=== PATIENT | female | born 1960 | race Caucasian/White ===

== ENCOUNTER → 2016-06-18 | Outpatient (CLI) | payer OTHER ==
[~2016-06-18] MED LIST: ASPI-515 PO; BISO1TAB12 PO; COLON HEALTH PO; FIBER PO; HYDR-3138 PO; LEVO100T5 PO; LUTE1CAP PO; MULT-516 PO; NORE0.3513 PO; OMEP-110 PO
== END | disposition home or self-care (01) ==
LOC: LAB 11:50
PROVIDERS: ATTEND Family Medicine
DX: E03.9 Hypothyroidism, unspecified (principal)
CPT/HCPCS: 36415; 84443

== ENCOUNTER → 2016-07-18 | Outpatient (CLI) | payer OTHER | END | disposition home or self-care (01) | LOC: CFH 06:52 | PROVIDERS: ATTEND Internal Medicine Cardiovascular Disease | DX: I49.3 Ventricular premature depolarization (principal); I10 Essential (primary) hypertension; I47.2 Ventricular tachycardia | CPT/HCPCS: 78452; 93017; 93306; A9502 ==

== ENCOUNTER 2016-10-17 09:50 | Inpatient (IN) | payer OTHER ==
[~2016-10-17] VITALS: Ht 162.6 cm; Wt 95.2 kg
[~2016-10-17 09:50] MED LIST changes: -HYDR-3138 PO; +HYDR-3237 PO
[2016-10-17] MEDS ORDERED: MORPHINE SULFATE 4 MG/ML, 1ML ONE ×2 (10:22→15:20)
[2016-10-17] MEDS ORDERED: ONDANSETRON 2MG/ML, 2ML ONE (10:22)
[2016-10-17] MEDS ORDERED: SODIUM CHLORIDE FLUSH 10ML SYR IVF ONE (10:30)
[2016-10-17] MEDS ORDERED: SODIUM CHLORIDE 0.9% 1,000ML IVBOLUS ONE (10:30)
[2016-10-17] MEDS ORDERED: ONDANSETRON 2MG/ML, 2ML IVPush ONE (10:30)
[2016-10-17] MEDS ORDERED: MORPHINE SULFATE 4 MG/ML, 1ML IVPush PRN (10:30)
[2016-10-17 10:53] LABS: HEMATOCRIT 41.1 % (34.6-47.8); HEMOGLOBIN 13.9 g/dL (11.7-16.4); WHITE BLOOD COUNT 13.7 x10^3/uL (3.4-10)
[2016-10-17 11:06] LABS: ASPARTATE AMINO TRANSFERASE 15 U/L (15-37); BLOOD UREA NITROGEN 12 mg/dL (7-18)
[2016-10-17 11:32] LABS: PATH.CAST-FLAG NOT PRESENT; SPERM-FLAG NOT PRESENT; SRC-FLAG NOT PRESENT; XTAL-FLAG NOT PRESENT; YLC-FLAG NOT PRESENT
[2016-10-17] MEDS ORDERED: OMNIPAQUE 350 MG/ML, 100ML BOTTLE ONE (12:30)
[2016-10-17] MEDS ORDERED: DIAZEPAM 5 MG/ML, 2ML IV ONE (13:30)
[2016-10-17] MEDS ORDERED: ONDANSETRON 2MG/ML, 2ML IVPush PRN (14:00)
[2016-10-17] MEDS ORDERED: OMEPRAZOLE 20 MG CAPSULE.DR PO SCH (14:00)
[2016-10-17] MEDS ORDERED: hydrALAzine 20 MG/ML, 1ML IVPush PRN (14:00)
[2016-10-17] MEDS ORDERED: DIAZEPAM 5 MG/ML, 2ML ONE (15:20)
[2016-10-17] MEDS: morphine SULFATE 10 MG/ML, 1ML IVPush PRN (15:21)
[2016-10-17] MEDS: LACTATED RINGERS 1,000 ML IV SCH (16:28)
[2016-10-17 17:08] VITALS: BP 123/84
[2016-10-17 19:10] VITALS: BP 118/80
[2016-10-17] MEDS: LACTULOSE 10 GM/15 ML UDC PO SCH (21:00)
[2016-10-18 01:25] VITALS: BP 112/75
[2016-10-18] MEDS: LACTATED RINGERS 1,000 ML IV SCH ×3 (01:31→23:56)
[2016-10-18] MEDS: LEVOTHYROXINE 100 MCG TABLET PO SCH (07:53)
[2016-10-18 08:33] VITALS: BP 135/83
[2016-10-18] MEDS ORDERED: [UNRECOGNIZED DRUG - OTHER] HOMEMEDPO SCH (09:00)
[2016-10-18] MEDS ORDERED: LUTEIN PO SCH (09:00)
[2016-10-18] MEDS ORDERED: HCTZ HOMEMEDPO SCH (09:00)
[2016-10-18] MEDS ORDERED: NORETHINDRONE 0.35 MG HOMEMEDPO SCH (09:00)
[2016-10-18] MEDS ORDERED: BISOPROLOL FUMARATE HOMEMEDPO SCH (09:00)
[2016-10-18] MEDS ORDERED: ZEAXANTHIN PO SCH (09:00)
[2016-10-18] MEDS: LACTULOSE 10 GM/15 ML UDC PO SCH ×2 (09:03→20:33)
[2016-10-18] MEDS: MULTIVITAMIN 1 TABLET PO SCH (09:03)
[2016-10-18 13:37] VITALS: BP 153/94
[2016-10-18] MEDS ORDERED: ACETAMINOPHEN 325 MG TABLET PO PRN ×3 (14:00→18:30)
[2016-10-18] MEDS ORDERED: ACETAMINOPHEN 325 MG TABLET ONE (14:04)
[2016-10-18 15:09] VITALS: BP 119/81
[2016-10-18] MEDS ORDERED: hydrALAzine 20 MG/ML, 1ML IVPush PRN (15:30)
[2016-10-18] MEDS ORDERED: VANCOMYCIN PER PHARMACY MC PRN (18:30)
[2016-10-18] MEDS ORDERED: PHARMACOKINETIC MONITORING MC PRN (19:00)
[2016-10-18] MEDS ORDERED: VANCOMYCIN 1,900 MG in SODIUM CHLORIDE 0.9% 250 ML IV SCH ×2 (19:00→22:00)
[2016-10-18] MEDS ORDERED: PHARMACOKINETIC CONSULTATION MC ONE (19:00)
[2016-10-18 19:55] VITALS: BP 124/77
[2016-10-18] MEDS: PIPERACILLIN/TAZO/PMX 3.375GM 50 ML IV SCH (20:17)
[2016-10-18] MEDS: ENOXAPARIN 40 MG/0.4 ML SQ SCH (20:18)
[2016-10-18] MEDS: OMEPRAZOLE 20 MG CAPSULE.DR PO PRN (21:53)
[2016-10-19 02:24] VITALS: BP 134/89
[2016-10-19] MEDS: PIPERACILLIN/TAZO/PMX 3.375GM 50 ML IV SCH ×4 (02:27→20:00)
[2016-10-19] MEDS: morphine SULFATE 10 MG/ML, 1ML IVPush PRN ×3 (02:41→09:28)
[2016-10-19 04:47] LABS: HEMATOCRIT 35.6 % (34.6-47.8); HEMOGLOBIN 11.8 g/dL (11.7-16.4); WHITE BLOOD COUNT 20.4 x10^3/uL (3.4-10)
[2016-10-19 04:53] LABS: BLOOD UREA NITROGEN 8 mg/dL (7-18)
[2016-10-19 04:57] LABS: ASPARTATE AMINO TRANSFERASE 18 U/L (15-37)
[2016-10-19] MEDS: LEVOTHYROXINE 100 MCG TABLET PO SCH (05:05)
[2016-10-19 06:25] LABS: DIFF TOTAL CELLS COUNTED 100 CELL DIFF
[2016-10-19 06:26] LABS: VERIFY COUNTS? YES
[2016-10-19 06:27] LABS: POLYCHROMASIA 1+
[2016-10-19 07:26] VITALS: BP 137/85
[2016-10-19] MEDS: MULTIVITAMIN 1 TABLET PO SCH (07:29)
[2016-10-19] MEDS: LACTULOSE 10 GM/15 ML UDC PO SCH ×2 (07:29→20:42)
[2016-10-19] MEDS: HYDROcodone/APAP 10/325 MG TABLET PO PRN ×5 (07:29→23:23)
[2016-10-19] MEDS: [UNRECOGNIZED DRUG - OTHER] HOMEMEDPO SCH (07:29)
[2016-10-19] MEDS: POTASSIUM CHLORIDE 20 MEQ TAB.ER.PRT PO SCH ×2 (11:26→19:20)
[2016-10-19 13:42] VITALS: BP 125/85
[2016-10-19] MEDS: VANCOMYCIN 1,500 MG in SODIUM CHLORIDE 0.9% 250 ML IV SCH (15:30)
[2016-10-19] MEDS: LACTATED RINGERS 1,000 ML IV SCH (15:30)
[2016-10-19 18:48] VITALS: BP 120/86
[2016-10-19] MEDS: ENOXAPARIN 40 MG/0.4 ML SQ SCH (19:20)
[2016-10-19] MEDS ORDERED: hydrALAzine 20 MG/ML, 1ML IVPush PRN (19:30)
[2016-10-19] MEDS ORDERED: PHARMACOKINETIC MONITORING MC PRN (19:30)
[2016-10-19] MEDS ORDERED: VANCOMYCIN PER PHARMACY MC PRN (19:30)
[2016-10-19] MEDS ORDERED: HYDROmorphone 1 MG/ML, 1ML IM PRN (21:00)
[2016-10-20] MEDS: LACTATED RINGERS 1,000 ML IV SCH ×3 (01:30→19:20)
[2016-10-20 01:38] VITALS: BP 121/82
[2016-10-20] MEDS: PIPERACILLIN/TAZO/PMX 3.375GM 50 ML IV SCH ×4 (02:00→20:21)
[2016-10-20] MEDS: HYDROcodone/APAP 10/325 MG TABLET PO PRN ×5 (03:53→20:20)
[2016-10-20 04:59] LABS: HEMATOCRIT 34.6 % (34.6-47.8); HEMOGLOBIN 11.6 g/dL (11.7-16.4); WHITE BLOOD COUNT 21.8 x10^3/uL (3.4-10)
[2016-10-20 05:13] LABS: BLOOD UREA NITROGEN 9 mg/dL (7-18)
[2016-10-20 05:16] LABS: ASPARTATE AMINO TRANSFERASE 13 U/L (15-37)
[2016-10-20] MEDS: LEVOTHYROXINE 100 MCG TABLET PO SCH (05:35)
[2016-10-20 05:42] LABS: DIFF TOTAL CELLS COUNTED 100 CELL DIFF
[2016-10-20 05:44] LABS: VERIFY COUNTS? YES
[2016-10-20 07:24] VITALS: BP 131/79
[2016-10-20] MEDS: [UNRECOGNIZED DRUG - OTHER] HOMEMEDPO SCH (07:41)
[2016-10-20] MEDS: LACTULOSE 10 GM/15 ML UDC PO SCH ×2 (07:41→20:20)
[2016-10-20] MEDS: MULTIVITAMIN 1 TABLET PO SCH (07:41)
[2016-10-20] MEDS: VANCOMYCIN 1,500 MG in SODIUM CHLORIDE 0.9% 250 ML IV SCH (11:05)
[2016-10-20 13:16] VITALS: BP 130/91
[2016-10-20 19:03] VITALS: BP 122/84
[2016-10-20] MEDS: ENOXAPARIN 40 MG/0.4 ML SQ SCH (19:20)
[2016-10-20] MEDS: ACETAMINOPHEN 325 MG TABLET PO PRN (20:20)
[2016-10-21] MEDS: METRONIDAZOLE PMX 500MG/100ML 100 ML IVPB SCH ×4 (00:19→16:56)
[2016-10-21] MEDS: HYDROcodone/APAP 10/325 MG TABLET PO PRN ×6 (00:19→20:59)
[2016-10-21] MEDS: PIPERACILLIN/TAZO/PMX 3.375GM 50 ML IV SCH ×4 (02:19→20:10)
[2016-10-21 03:24] VITALS: BP 120/81
[2016-10-21] MEDS: VANCOMYCIN 1,500 MG in SODIUM CHLORIDE 0.9% 250 ML IV SCH ×2 (04:19→22:57)
[2016-10-21 04:37] LABS: HEMATOCRIT 33.2 % (34.6-47.8); WHITE BLOOD COUNT 19.9 x10^3/uL (3.4-10)
[2016-10-21] MEDS: LACTATED RINGERS 1,000 ML IV SCH ×2 (06:14→16:56)
[2016-10-21] MEDS: LEVOTHYROXINE 112 MCG TABLET PO SCH (06:14)
[2016-10-21 07:16] VITALS: BP 121/71
[2016-10-21] MEDS: MULTIVITAMIN 1 TABLET PO SCH (08:20)
[2016-10-21] MEDS: LACTULOSE 10 GM/15 ML UDC PO SCH ×2 (08:20→20:10)
[2016-10-21] MEDS: [UNRECOGNIZED DRUG - OTHER] HOMEMEDPO SCH (08:21)
[2016-10-21] MEDS ORDERED: MAGNESIUM CITRATE 300ML ORAL SOL PO ONE ×2 (09:30→18:30)
[2016-10-21] MEDS: POLYETHYLENE GLYCOL 17 GM PACKET PO SCH (10:00)
[2016-10-21] MEDS ORDERED: MAGNESIUM HYDROXIDE 8%, 30ML UDC PO PRN (11:30)
[2016-10-21 14:07] VITALS: BP 130/87
[2016-10-21] MEDS: ACETAMINOPHEN 325 MG TABLET PO PRN (16:09)
[2016-10-21] MEDS: ENOXAPARIN 40 MG/0.4 ML SQ SCH (16:56)
[2016-10-21] MEDS: ONDANSETRON 2MG/ML, 2ML IVPush PRN (16:58)
[2016-10-21] MEDS ORDERED: MAGNESIUM CITRATE 300ML ORAL SOL ONE (18:21)
[2016-10-21 19:35] VITALS: BP 124/82
[2016-10-22] MEDS: PIPERACILLIN/TAZO/PMX 3.375GM 50 ML IV SCH ×4 (02:13→21:53)
[2016-10-22] MEDS: LACTATED RINGERS 1,000 ML IV SCH (05:00)
[2016-10-22] MEDS: METRONIDAZOLE PMX 500MG/100ML 100 ML IVPB SCH ×3 (06:00→18:04)
[2016-10-22] MEDS: LEVOTHYROXINE 112 MCG TABLET PO SCH (06:00)
[2016-10-22 06:53] VITALS: BP 126/81
[2016-10-22 08:16] LABS: HEMATOCRIT 31.7 % (34.6-47.8); HEMOGLOBIN 10.5 g/dL (11.7-16.4); WHITE BLOOD COUNT 18.6 x10^3/uL (3.4-10)
[2016-10-22] MEDS: [UNRECOGNIZED DRUG - OTHER] HOMEMEDPO SCH (08:17)
[2016-10-22] MEDS: MULTIVITAMIN 1 TABLET PO SCH (08:17)
[2016-10-22] MEDS: LACTULOSE 10 GM/15 ML UDC PO SCH ×3 (08:17→21:15)
[2016-10-22] MEDS: POLYETHYLENE GLYCOL 17 GM PACKET PO SCH (09:00)
[2016-10-22] MEDS: HYDROcodone/APAP 10/325 MG TABLET PO PRN ×3 (09:44→18:05)
[2016-10-22] MEDS: VANCOMYCIN 2,000 MG in SODIUM CHLORIDE 0.9% 500 ML IV SCH (10:58)
[2016-10-22] MEDS: IBUPROFEN 200 MG TABLET PO PRN (13:50)
[2016-10-22] MEDS: ONDANSETRON 2MG/ML, 2ML IVPush PRN ×2 (13:51→21:15)
[2016-10-22 14:15] VITALS: BP 113/78
[2016-10-22] MEDS: ENOXAPARIN 40 MG/0.4 ML SQ SCH ×2 (18:05→21:15)
[2016-10-22 19:21] VITALS: BP 132/89
[2016-10-23] MEDS: METRONIDAZOLE PMX 500MG/100ML 100 ML IVPB SCH ×5 (00:22→23:30)
[2016-10-23 02:05] VITALS: BP 152/97
[2016-10-23] MEDS: PIPERACILLIN/TAZO/PMX 3.375GM 50 ML IV SCH ×4 (03:52→21:13)
[2016-10-23] MEDS: ONDANSETRON 2MG/ML, 2ML IVPush PRN ×2 (04:07→12:50)
[2016-10-23] MEDS: VANCOMYCIN 2,000 MG in SODIUM CHLORIDE 0.9% 500 ML IV SCH (04:49)
[2016-10-23] MEDS: FAMOTIDINE 20 MG TABLET PO PRN (04:49)
[2016-10-23 05:13] LABS: BLOOD UREA NITROGEN 9 mg/dL (7-18)
[2016-10-23] MEDS: LEVOTHYROXINE 112 MCG TABLET PO SCH (06:05)
[2016-10-23 07:58] VITALS: BP 150/99
[2016-10-23] MEDS: PROCHLORPERAZINE 5 MG/ML, 2ML IVPush PRN ×2 (08:50→21:03)
[2016-10-23] MEDS: MULTIVITAMIN 1 TABLET PO SCH (08:50)
[2016-10-23] MEDS: LACTULOSE 10 GM/15 ML UDC PO SCH ×2 (08:50→21:00)
[2016-10-23] MEDS: [UNRECOGNIZED DRUG - OTHER] HOMEMEDPO SCH (08:51)
[2016-10-23] MEDS: POLYETHYLENE GLYCOL 17 GM PACKET PO SCH (09:58)
[2016-10-23] MEDS ORDERED: PROCHLORPERAZINE 5 MG/ML, 2ML IV PRN (10:00)
[2016-10-23] MEDS ORDERED: POTASSIUM CHLORIDE 20 MEQ TAB.ER.PRT PO ONE (10:30)
[2016-10-23] MEDS: HYDROcodone/APAP 10/325 MG TABLET PO PRN ×3 (10:59→21:02)
[2016-10-23] MEDS ORDERED: CATHFLO-ALTEPLASE 2 MG/2 ML CATHFLUSH ONE ×2 (11:30→12:30)
[2016-10-23 11:32] LABS: HEMATOCRIT 36.2 % (34.6-47.8); HEMOGLOBIN 11.9 g/dL (11.7-16.4); WHITE BLOOD COUNT 25.6 x10^3/uL (3.4-10)
[2016-10-23 11:41] LABS: BLOOD UREA NITROGEN 10 mg/dL (7-18)
[2016-10-23 11:45] LABS: DIFF TOTAL CELLS COUNTED 100 CELL DIFF
[2016-10-23 11:47] LABS: VERIFY COUNTS? YES
[2016-10-23 14:00] VITALS: BP 150/99
[2016-10-23] MEDS ORDERED: OMNIPAQUE 350 MG/ML, 100ML BOTTLE ONE (17:04)
[2016-10-23 20:52] VITALS: BP 157/89
[2016-10-23] MEDS: ENOXAPARIN 40 MG/0.4 ML SQ SCH (21:02)
[2016-10-24] MEDS: HYDROcodone/APAP 10/325 MG TABLET PO PRN ×5 (02:02→20:56)
[2016-10-24 02:24] VITALS: BP 153/79
[2016-10-24] MEDS: PIPERACILLIN/TAZO/PMX 3.375GM 50 ML IV SCH ×2 (03:10→10:45)
[2016-10-24 03:39] LABS: HEMATOCRIT 33.2 % (34.6-47.8); HEMOGLOBIN 10.9 g/dL (11.7-16.4)
[2016-10-24 03:51] LABS: ASPARTATE AMINO TRANSFERASE 23 U/L (15-37); BLOOD UREA NITROGEN 10 mg/dL (7-18)
[2016-10-24 03:52] LABS: DIFF TOTAL CELLS COUNTED 100 CELL DIFF
[2016-10-24 03:54] LABS: VERIFY COUNTS? YES
[2016-10-24] MEDS: LEVOTHYROXINE 112 MCG TABLET PO SCH ×2 (06:00→12:09)
[2016-10-24] MEDS: METRONIDAZOLE PMX 500MG/100ML 100 ML IVPB SCH ×2 (06:17→12:07)
[2016-10-24 06:43] VITALS: BP 153/92
[2016-10-24] MEDS: PROCHLORPERAZINE 5 MG/ML, 2ML IVPush PRN ×2 (07:25→21:02)
[2016-10-24] MEDS: POLYETHYLENE GLYCOL 17 GM PACKET PO SCH (07:38)
[2016-10-24] MEDS: [UNRECOGNIZED DRUG - OTHER] HOMEMEDPO SCH ×2 (07:38→10:45)
[2016-10-24] MEDS: LACTULOSE 10 GM/15 ML UDC PO SCH ×2 (07:38→20:56)
[2016-10-24] MEDS: MULTIVITAMIN 1 TABLET PO SCH (07:39)
[2016-10-24] MEDS ORDERED: LIDOCAINE 1%, 20ML ONE (08:30)
[2016-10-24] MEDS ORDERED: FENTANYL PF 100 MCG/2ML ONE (08:41)
[2016-10-24] MEDS ORDERED: MIDAZOLAM 1 MG/ML, 5ML ONE (08:41)
[2016-10-24] MEDS ORDERED: FLUMAZENIL 0.1 MG/1 ML, 5ML ONE (08:42)
[2016-10-24] MEDS ORDERED: NALOXONE 1 MG/ML, 2ML ONE (08:42)
[2016-10-24] MEDS: morphine SULFATE 10 MG/ML, 1ML IVPush PRN ×2 (10:45→20:56)
[2016-10-24] MEDS ORDERED: FLU VACC QS2017-18 (36MOS+) UP/PF 0.5 ML IM-VACC ONE (13:00)
[2016-10-24 14:00] VITALS: BP 134/83
[2016-10-24] MEDS: PIPERACILLIN/TAZO/PMX 4.5GM 100 ML IV SCH ×2 (16:33→22:54)
[2016-10-24 19:10] VITALS: BP 150/79
[2016-10-24] MEDS: metroNIDAZOLE 500 MG TABLET PO SCH (20:56)
[2016-10-24] MEDS: ENOXAPARIN 40 MG/0.4 ML SQ SCH (20:56)
[2016-10-24] MEDS: POTASSIUM CHLORIDE 20 MEQ TAB.ER.PRT PO SCH ×2 (20:57→22:54)
[2016-10-25] MEDS: HYDROcodone/APAP 10/325 MG TABLET PO PRN ×5 (01:27→18:29)
[2016-10-25 02:30] VITALS: BP 150/89
[2016-10-25] MEDS: PIPERACILLIN/TAZO/PMX 4.5GM 100 ML IV SCH ×4 (03:55→20:20)
[2016-10-25] MEDS: metroNIDAZOLE 500 MG TABLET PO SCH ×3 (03:55→20:19)
[2016-10-25 04:20] LABS: BLOOD UREA NITROGEN 9 mg/dL (7-18)
[2016-10-25] MEDS: LEVOTHYROXINE 112 MCG TABLET PO SCH (06:00)
[2016-10-25 07:11] VITALS: BP 162/99
[2016-10-25] MEDS: PROCHLORPERAZINE 5 MG/ML, 2ML IVPush PRN (08:11)
[2016-10-25] MEDS: MULTIVITAMIN 1 TABLET PO SCH (08:12)
[2016-10-25] MEDS: LACTULOSE 10 GM/15 ML UDC PO SCH ×2 (08:15→20:19)
[2016-10-25] MEDS: POLYETHYLENE GLYCOL 17 GM PACKET PO SCH (08:16)
[2016-10-25 12:48] VITALS: BP 167/100
[2016-10-25] MEDS: FAMOTIDINE 20 MG TABLET PO PRN (18:25)
[2016-10-25] MEDS: METOPROLOL TARTRATE 25 MG TABLET PO SCH (18:25)
[2016-10-25] MEDS: POTASSIUM CHLORIDE 20 MEQ TAB.ER.PRT PO SCH ×3 (18:25→23:58)
[2016-10-25 19:15] VITALS: BP 156/83
[2016-10-25] MEDS: LISINOPRIL 20 MG TABLET PO SCH (20:20)
[2016-10-25] MEDS: ENOXAPARIN 40 MG/0.4 ML SQ SCH (20:20)
[2016-10-26] MEDS: PROCHLORPERAZINE 5 MG/ML, 2ML IVPush PRN
[2016-10-26] MEDS: HYDROcodone/APAP 10/325 MG TABLET PO PRN ×5 (00:22→17:32)
[2016-10-26 02:58] VITALS: BP 152/84
[2016-10-26] MEDS: LEVOTHYROXINE 112 MCG TABLET PO SCH (04:54)
[2016-10-26] MEDS: metroNIDAZOLE 500 MG TABLET PO SCH ×3 (04:55→19:55)
[2016-10-26] MEDS: METOPROLOL TARTRATE 25 MG TABLET PO SCH ×2 (04:55→17:32)
[2016-10-26] MEDS: PIPERACILLIN/TAZO/PMX 4.5GM 100 ML IV SCH ×4 (04:55→21:39)
[2016-10-26 05:34] LABS: HEMATOCRIT 33.1 % (34.6-47.8)
[2016-10-26 05:52] LABS: BLOOD UREA NITROGEN 7 mg/dL (7-18)
[2016-10-26 06:19] LABS: DIFF TOTAL CELLS COUNTED 100 CELL DIFF
[2016-10-26 06:22] LABS: VERIFY COUNTS? YES
[2016-10-26 06:23] LABS: POLYCHROMASIA 1+
[2016-10-26 07:50] VITALS: BP 159/101
[2016-10-26] MEDS: POLYETHYLENE GLYCOL 17 GM PACKET PO SCH ×2 (08:48→10:05)
[2016-10-26] MEDS: LACTULOSE 10 GM/15 ML UDC PO SCH ×2 (08:48→21:00)
[2016-10-26] MEDS: MULTIVITAMIN 1 TABLET PO SCH (08:49)
[2016-10-26] MEDS: LISINOPRIL 20 MG TABLET PO SCH ×3 (08:51→19:55)
[2016-10-26 13:55] VITALS: BP 159/100
[2016-10-26] MEDS ORDERED: hydrALAzine 20 MG/ML, 1ML IVPush PRN (14:00)
[2016-10-26] MEDS: FAMOTIDINE 20 MG TABLET PO PRN (14:02)
[2016-10-26 18:47] VITALS: BP 158/94
[2016-10-26] MEDS: ENOXAPARIN 40 MG/0.4 ML SQ SCH (19:55)
[2016-10-26] MEDS: IBUPROFEN 200 MG TABLET PO PRN (21:38)
[2016-10-27 03:59] VITALS: BP 163/97
[2016-10-27] MEDS: PIPERACILLIN/TAZO/PMX 4.5GM 100 ML IV SCH ×4 (04:21→22:16)
[2016-10-27] MEDS: HYDROcodone/APAP 10/325 MG TABLET PO PRN (04:21)
[2016-10-27] MEDS: metroNIDAZOLE 500 MG TABLET PO SCH (04:21)
[2016-10-27 04:56] LABS: HEMATOCRIT 33.5 % (34.6-47.8); HEMOGLOBIN 11.2 g/dL (11.7-16.4); WHITE BLOOD COUNT 19.2 x10^3/uL (3.4-10)
[2016-10-27 05:00] LABS: BLOOD UREA NITROGEN 12 mg/dL (7-18)
[2016-10-27 05:11] LABS: ASPARTATE AMINO TRANSFERASE 19 U/L (15-37)
[2016-10-27] MEDS: METOPROLOL TARTRATE 25 MG TABLET PO SCH ×2 (05:54→17:40)
[2016-10-27] MEDS: LEVOTHYROXINE 112 MCG TABLET PO SCH (05:55)
[2016-10-27] MEDS: IBUPROFEN 200 MG TABLET PO PRN ×2 (06:21→15:35)
[2016-10-27 08:18] VITALS: BP 165/99
[2016-10-27] MEDS: LACTULOSE 10 GM/15 ML UDC PO SCH ×2 (08:37→21:00)
[2016-10-27] MEDS: POLYETHYLENE GLYCOL 17 GM PACKET PO SCH (08:38)
[2016-10-27] MEDS: LISINOPRIL 20 MG TABLET PO SCH ×2 (08:47→21:40)
[2016-10-27] MEDS: MULTIVITAMIN 1 TABLET PO SCH (08:48)
[2016-10-27] MEDS: FAMOTIDINE 20 MG TABLET PO PRN (13:39)
[2016-10-27] MEDS: METHOCARBAMOL 500 MG TABLET PO PRN (13:42)
[2016-10-27 14:10] VITALS: BP 158/90
[2016-10-27 17:43] VITALS: BP 152/86
[2016-10-27 19:30] VITALS: BP 173/102
[2016-10-27] MEDS: ENOXAPARIN 40 MG/0.4 ML SQ SCH (21:40)
[2016-10-28 02:56] VITALS: BP 164/95
[2016-10-28] MEDS: HYDROcodone/APAP 10/325 MG TABLET PO PRN (02:57)
[2016-10-28 03:13] LABS: HEMATOCRIT 37.1 % (34.6-47.8); HEMOGLOBIN 12.1 g/dL (11.7-16.4)
[2016-10-28 03:24] LABS: ASPARTATE AMINO TRANSFERASE 14 U/L (15-37); BLOOD UREA NITROGEN 10 mg/dL (7-18)
[2016-10-28] MEDS: PIPERACILLIN/TAZO/PMX 4.5GM 100 ML IV SCH ×4 (04:14→21:42)
[2016-10-28 04:46] LABS: DIFF TOTAL CELLS COUNTED 100 CELL DIFF
[2016-10-28 04:48] LABS: ANISOCYTOSIS 1+; VERIFY COUNTS? YES
[2016-10-28 04:49] LABS: LARGE PLATELETS 1+
[2016-10-28] MEDS: LEVOTHYROXINE 112 MCG TABLET PO SCH (06:06)
[2016-10-28] MEDS: METOPROLOL TARTRATE 25 MG TABLET PO SCH ×2 (06:06→17:28)
[2016-10-28 08:26] VITALS: BP 138/89
[2016-10-28] MEDS: POLYETHYLENE GLYCOL 17 GM PACKET PO SCH (09:00)
[2016-10-28] MEDS: LACTULOSE 10 GM/15 ML UDC PO SCH ×3 (09:00→20:37)
[2016-10-28] MEDS: MULTIVITAMIN 1 TABLET PO SCH (09:35)
[2016-10-28] MEDS: LISINOPRIL 20 MG TABLET PO SCH ×2 (09:35→21:47)
[2016-10-28] MEDS: METHOCARBAMOL 500 MG TABLET PO PRN ×2 (10:43→19:19)
[2016-10-28] MEDS: IBUPROFEN 200 MG TABLET PO PRN ×2 (12:15→20:43)
[2016-10-28] MEDS: FAMOTIDINE 20 MG TABLET PO PRN (14:15)
[2016-10-28 14:50] VITALS: BP 151/90
[2016-10-28] MEDS ORDERED: CETIRIZINE 10 MG TABLET PO PRN (17:00)
[2016-10-28 18:57] VITALS: BP_SYST 120; BP_DIAS 7; BP_DIAS 77
[2016-10-28] MEDS: ENOXAPARIN 40 MG/0.4 ML SQ SCH (20:37)
[2016-10-28 21:37] VITALS: BP 126/80
[2016-10-28] MEDS: OMEPRAZOLE 20 MG CAPSULE.DR PO PRN (21:42)
[2016-10-29 03:50] VITALS: BP 158/94
[2016-10-29] MEDS: PIPERACILLIN/TAZO/PMX 4.5GM 100 ML IV SCH ×4 (03:54→20:11)
[2016-10-29] MEDS: HYDROcodone/APAP 10/325 MG TABLET PO PRN ×3 (05:32→20:09)
[2016-10-29] MEDS: LEVOTHYROXINE 150 MCG TABLET PO SCH (05:33)
[2016-10-29 05:36] VITALS: BP 147/77
[2016-10-29] MEDS: METOPROLOL TARTRATE 25 MG TABLET PO SCH ×2 (05:37→18:10)
[2016-10-29 06:09] LABS: HEMATOCRIT 35.6 % (34.6-47.8)
[2016-10-29 07:29] VITALS: BP 148/83
[2016-10-29] MEDS: POLYETHYLENE GLYCOL 17 GM PACKET PO SCH (09:00)
[2016-10-29] MEDS: MULTIVITAMIN 1 TABLET PO SCH (09:07)
[2016-10-29] MEDS: LISINOPRIL 20 MG TABLET PO SCH ×2 (09:08→20:10)
[2016-10-29] MEDS: IBUPROFEN 200 MG TABLET PO PRN (10:02)
[2016-10-29 14:27] VITALS: BP 147/103
[2016-10-29 16:00] VITALS: BP 157/85
[2016-10-29 19:36] VITALS: BP 127/79
[2016-10-29] MEDS: ENOXAPARIN 40 MG/0.4 ML SQ SCH (20:10)
[2016-10-29] MEDS: LACTULOSE 10 GM/15 ML UDC PO SCH ×2 (20:10→20:12)
[2016-10-30] MEDS: HYDROcodone/APAP 10/325 MG TABLET PO PRN ×3 (02:21→20:47)
[2016-10-30 02:37] VITALS: BP 148/89
[2016-10-30] MEDS: PIPERACILLIN/TAZO/PMX 4.5GM 100 ML IV SCH ×4 (04:03→22:34)
[2016-10-30 04:20] LABS: HEMATOCRIT 35.8 % (34.6-47.8); HEMOGLOBIN 11.8 g/dL (11.7-16.4); WHITE BLOOD COUNT 12.2 x10^3/uL (3.4-10)
[2016-10-30] MEDS: METOPROLOL TARTRATE 25 MG TABLET PO SCH ×2 (06:04→18:03)
[2016-10-30] MEDS: OMEPRAZOLE 20 MG CAPSULE.DR PO PRN ×2 (06:04→19:50)
[2016-10-30] MEDS: LEVOTHYROXINE 150 MCG TABLET PO SCH (06:04)
[2016-10-30 07:26] VITALS: BP 122/78
[2016-10-30] MEDS: IBUPROFEN 200 MG TABLET PO PRN (07:47)
[2016-10-30] MEDS: LACTULOSE 10 GM/15 ML UDC PO SCH ×2 (09:00→19:50)
[2016-10-30] MEDS: POLYETHYLENE GLYCOL 17 GM PACKET PO SCH (09:00)
[2016-10-30] MEDS: LISINOPRIL 20 MG TABLET PO SCH ×2 (09:17→19:52)
[2016-10-30] MEDS: MULTIVITAMIN 1 TABLET PO SCH (09:17)
[2016-10-30 14:24] VITALS: BP 127/82
[2016-10-30 17:45] VITALS: BP 133/76
[2016-10-30 19:26] VITALS: BP 134/84
[2016-10-30] MEDS: ENOXAPARIN 40 MG/0.4 ML SQ SCH (19:52)
[2016-10-31 00:38] VITALS: BP 127/79
[2016-10-31] MEDS: HYDROcodone/APAP 10/325 MG TABLET PO PRN ×3 (04:35→18:01)
[2016-10-31] MEDS: PIPERACILLIN/TAZO/PMX 4.5GM 100 ML IV SCH ×2 (04:36→09:48)
[2016-10-31] MEDS: METOPROLOL TARTRATE 25 MG TABLET PO SCH ×2 (05:22→18:01)
[2016-10-31] MEDS: LEVOTHYROXINE 150 MCG TABLET PO SCH (05:22)
[2016-10-31 06:40] VITALS: BP 106/71
[2016-10-31] MEDS: LACTULOSE 10 GM/15 ML UDC PO SCH (09:00)
[2016-10-31] MEDS: LISINOPRIL 20 MG TABLET PO SCH (09:00)
[2016-10-31] MEDS: POLYETHYLENE GLYCOL 17 GM PACKET PO SCH (09:00)
[2016-10-31] MEDS: MULTIVITAMIN 1 TABLET PO SCH (09:48)
[2016-10-31] MEDS ORDERED: ERTAPENEM 1 GM in SODIUM CHLORIDE 0.9% 50 ML IV SCH (11:00)
[2016-10-31 12:08] VITALS: BP 134/83
[2016-10-31] MEDS ORDERED: ONDA4TAB13 SL (16:40)
[2016-10-31] MEDS ORDERED: LISI-170 PO (16:40)
[2016-10-31] MEDS ORDERED: ERTA1VIA IV (16:40)
[2016-10-31] MEDS ORDERED: METH500T7 PO (16:40)
[2016-10-31] MEDS ORDERED: POLY17PO5 PO (16:40)
[2016-10-31] MEDS ORDERED: METO25TA35 PO (16:40)
[2016-10-31] MEDS ORDERED: HYDR-3343 PO (16:40)
[2016-10-31] MEDS ORDERED: SIMV40TA PO (16:48)
== END 2016-10-31 18:00 | disposition home or self-care (01) | DRG 871 ==
LOC: ED 10:18 → EDIP 13:21 → SUATTDRO 13:23 → 3NW 15:40
PROVIDERS: ADMIT Internal Medicine; ATTEND Internal Medicine
PROC: B5181ZA Fluoroscopy of Superior Vena Cava using Low Osmolar Contrast, Guidance (ICD-10-PCS; principal; 2016-10-20)
PROC: 02HV33Z Insertion of Infusion Device into Superior Vena Cava, Percutaneous Approach (ICD-10-PCS; 2016-10-20)
PROC: B548ZZA Ultrasonography of Superior Vena Cava, Guidance (ICD-10-PCS; 2016-10-20)
DX: A41.51 Sepsis due to Escherichia coli [E. coli] (principal); E43 Unspecified severe protein-calorie malnutrition; C56.9 Malignant neoplasm of unspecified ovary; J98.11 Atelectasis; N39.0 Urinary tract infection, site not specified; E03.9 Hypothyroidism, unspecified; E87.6 Hypokalemia; I10 Essential (primary) hypertension; K52.9 Noninfective gastroenteritis and colitis, unspecified; K59.03 Drug induced constipation; N70.93 Salpingitis and oophoritis, unspecified; N83.209 Unspecified ovarian cyst, unspecified side; T40.605A Adverse effect of unspecified narcotics, initial encounter; Z80.3 Family history of malignant neoplasm of breast; Z80.41 Family history of malignant neoplasm of ovary; Z80.8 Family history of malignant neoplasm of other organs or systems; Z90.49 Acquired absence of other specified parts of digestive tract; Z68.36 Body mass index [BMI] 36.0-36.9, adult
CPT/HCPCS: 36415; 36569; 49405; 49406; 71010; 71020; 71260; 74020; 74176; 74177; 76937; 77001; 80048; 80053; 80202; 81001; 81211; 81213; 82378; 83605; 83690; 83735; 84100; 84443; 84703; 85025; 85651; 86140; 86304; 87040; 87046; 87070; 87075; 87077; 87086; 87102; 87186; 87205; 87324; 96361; 96374; 96375; 96376; 99156; 99157; C1894; J1335; J1650; J2250; J2405; J2543; J2997; J3010; J3370; J3490; Q9967; C1729; C1751; C1769; J0780; J2270; J2310; J7030; J7040; J7050; J7120

== ENCOUNTER → 2017-03-05 | Outpatient (CLI) | payer OTHER ==
[~2017-03-05] MED LIST changes: +ERTA1VIA IV; +HYDR-3343 PO; +LISI-170 PO; +METH500T7 PO; +METO25TA35 PO; +ONDA4TAB13 SL; +POLY17PO5 PO; +SIMV40TA PO
[2017-03-05 08:36] LABS: BASOPHILS # (AUTO) 0.05 x10^3/uL (0-0.1); BASOPHILS % (AUTO) 1 % (0-1); EOSINOPHILS # (AUTO) 0.17 x10^3/uL (0-0.4); EOSINOPHILS % (AUTO) 2 % (1-7); LYMPHOCYTES # (AUTO) 2.88 x10^3/uL (1-3.4); LYMPHOCYTES % (AUTO) 36 % (22-44); MD NO; MEAN CORPUSCULAR HEMOGLOBIN 30.9 pg (27.0-34.8); MEAN CORPUSCULAR HGB CONC 33.4 g/dL (32.4-35.8); MEAN CORPUSCULAR VOLUME 92.5 fL (80-100); MEAN PLATELET VOLUME 7.7 fL (7.4-10.4); MONOCYTES % (AUTO) 7 % (2-9); NEUTROPHILS # (AUTO) 4.39 x10^3/uL (1.8-6.8); NEUTROPHILS % (AUTO) 54 % (42-75); PLATELET COUNT 340 x10^3/uL (130-400); RED BLOOD COUNT 4.64 x10^6/uL (3.82-5.3); RED CELL DISTRIBUTION WIDTH 13.1 % (9.6-15.2)
[2017-03-05 08:38] LABS: ALBUMIN 4.2 g/dL (3.4-5.0); ANION GAP 8 mmol/L (5-15); CALCIUM 9.3 mg/dL (8.5-10.1); CHLORIDE 106 mmol/L (98-107)
[2017-03-05 08:42] LABS: HEMOGLOBIN A1C 5.4 % (4.2-6.3)
[2017-03-05 08:51] LABS: ALANINE AMINOTRANSFERASE 31 U/L (12-78); ALKALINE PHOSPHATASE 61 U/L (45-117); BILIRUBIN,TOTAL 0.7 mg/dL (0.2-1.0); CHOL/HDL RATIO 3.5; CHOLESTEROL, TOTAL 216 mg/dL (140-239); CREATININE 0.79 mg/dL (0.55-1.02); FREE T4 (FREE THYROXINE) 1.31 ng/dL (0.76-1.46); HDL CHOL % 28 % (28-40); HDL CHOLESTEROL (DIRECT) 61 mg/dL (40-60); LDL CHOLESTEROL,CALCULATED 122 mg/dL (54-169); TOTAL PROTEIN 7.8 g/dL (6.4-8.2); TRIGLYCERIDES 163 mg/dL (50-200); VLDL CHOLESTEROL 33 mg/dL (0-25)
== END ==
LOC: LAB 08:03
PROVIDERS: ATTEND Family Medicine
DX: Z13.220 Encounter for screening for lipoid disorders (principal); Z13.1 Encounter for screening for diabetes mellitus; I10 Essential (primary) hypertension
CPT/HCPCS: 36415; 80053; 80061; 83036; 84439; 84443; 84481; 85025

== ENCOUNTER → 2017-03-27 | Outpatient (CLI) | payer OTHER | END | disposition home or self-care (01) | LOC: CFH 08:34 | PROVIDERS: ATTEND Specialist | DX: D25.2 Subserosal leiomyoma of uterus (principal) | CPT/HCPCS: 76830 ==

== ENCOUNTER → 2017-04-03 | Outpatient (CLI) | payer OTHER | END | disposition home or self-care (01) | LOC: CFH 09:25 | PROVIDERS: ATTEND Family Medicine | DX: Z12.31 Encounter for screening mammogram for malignant neoplasm of breast (principal); M51.36 Other intervertebral disc degeneration, lumbar region; M51.34 Other intervertebral disc degeneration, thoracic region | CPT/HCPCS: 72110; 77063; 77067 ==

== ENCOUNTER → 2017-07-28 | Outpatient (CLI) | payer OTHER | END | disposition home or self-care (01) | LOC: CFH 07:19 | PROVIDERS: ATTEND Specialist | DX: D25.9 Leiomyoma of uterus, unspecified (principal) | CPT/HCPCS: 76830 ==

== ENCOUNTER → 2017-11-20 | Outpatient (CLI) | payer OTHER ==
[2017-11-20 07:28] LABS: ALANINE AMINOTRANSFERASE 33 U/L (12-78); ANION GAP 10 mmol/L (5-15); CALCIUM 9.2 mg/dL (8.5-10.1); CHLORIDE 106 mmol/L (98-107); CHOLESTEROL, TOTAL 225 mg/dL (140-239); CREATININE 0.93 mg/dL (0.55-1.02)
[2017-11-20 07:37] LABS: ALKALINE PHOSPHATASE 66 U/L (45-117); BILIRUBIN,TOTAL 0.5 mg/dL (0.2-1.0); CHOL/HDL RATIO 3.9; FREE T4 (FREE THYROXINE) 1.24 ng/dL (0.76-1.46); HDL CHOL % 26 % (28-40); HDL CHOLESTEROL (DIRECT) 58 mg/dL (40-60); LDL CHOLESTEROL,CALCULATED 126 mg/dL (54-169); LDL/HDL RATIO 2.2 (0.5-3.0); TOTAL PROTEIN 7.9 g/dL (6.4-8.2); TRIGLYCERIDES 207 mg/dL (50-200); VLDL CHOLESTEROL 41 mg/dL (0-25)
== END | disposition home or self-care (01) ==
LOC: LAB 07:02
PROVIDERS: ATTEND Family Medicine
DX: I10 Essential (primary) hypertension (principal); E03.9 Hypothyroidism, unspecified
CPT/HCPCS: 36415; 80053; 80061; 82306; 84439; 84443; 84481

== ENCOUNTER → 2017-11-26 | Outpatient (CLI) | payer OTHER ==
[~2017-11-26] MED LIST changes: +OMNIPAQUE 350 MG/ML, 100ML BOTTLE ONE
== END | disposition home or self-care (01) ==
LOC: RAD 11:46
PROVIDERS: ATTEND Family Medicine
DX: K76.0 Fatty (change of) liver, not elsewhere classified (principal); K42.9 Umbilical hernia without obstruction or gangrene; Z90.49 Acquired absence of other specified parts of digestive tract
CPT/HCPCS: 74177; Q9967

== ENCOUNTER → 2018-01-06 | Outpatient (CLI) | payer OTHER ==
[~2018-01-06] MED LIST changes: -OMNIPAQUE 350 MG/ML, 100ML BOTTLE ONE
== END | disposition home or self-care (01) ==
LOC: CFH 14:21
PROVIDERS: ATTEND Obstetrics & Gynecology
DX: D25.9 Leiomyoma of uterus, unspecified (principal); N83.9 Noninflammatory disorder of ovary, fallopian tube and broad ligament, unspecified
CPT/HCPCS: 76830

== ENCOUNTER 2018-03-31 08:58 | Observation (INO) | payer OTHER ==
[~2018-03-31] VITALS: Ht 165.1 cm; Wt 89.5 kg
--- NOTE | 2018-03-31 09:36 | NUR ---
[facility] CLERK: TO ROOM FROM [facility].
[2018-03-31] MEDS ORDERED: FAMO20TA37 PO (10:00)
[2018-03-31 10:07] LABS: BASOPHILS # (AUTO) 0.09 x10^3/uL (0-0.1); BASOPHILS % (AUTO) 1 % (0-1); EOSINOPHILS # (AUTO) 0.35 x10^3/uL (0-0.4); EOSINOPHILS % (AUTO) 4 % (1-7); LYMPHOCYTES # (AUTO) 2.32 x10^3/uL (1-3.4); LYMPHOCYTES % (AUTO) 30 % (22-44); MD NO; MEAN CORPUSCULAR HEMOGLOBIN 31.1 pg (27.0-34.8); MEAN CORPUSCULAR HGB CONC 33.8 g/dL (32.4-35.8); MEAN PLATELET VOLUME 7.8 fL (7.4-10.4); MONOCYTES # (AUTO) 0.53 x10^3/uL (0.2-0.8); MONOCYTES % (AUTO) 7 % (2-9); NEUTROPHILS # (AUTO) 4.57 x10^3/uL (1.8-6.8); NEUTROPHILS % (AUTO) 58 % (42-75); PLATELET COUNT 348 x10^3/uL (130-400); RED BLOOD COUNT 4.67 x10^6/uL (3.82-5.3); RED CELL DISTRIBUTION WIDTH 12.6 % (9.6-15.2)
[2018-03-31 10:14] LABS: INTERNATIONAL NORMALIZED RATIO 0.97 (0.93-1.1); PROTHROMBIN TIME 10.3 Seconds (9.6-11.5)
[2018-03-31 10:15] LABS: ALANINE AMINOTRANSFERASE 29 U/L (12-78); ALBUMIN 4.2 g/dL (3.4-5.0); ANION GAP 7 mmol/L (5-15); CALCIUM 9.4 mg/dL (8.5-10.1); CHLORIDE 106 mmol/L (98-107); CREATININE 0.94 mg/dL (0.55-1.02)
[2018-03-31 10:20] LABS: ALKALINE PHOSPHATASE 68 U/L (45-117); BILIRUBIN,TOTAL 0.5 mg/dL (0.2-1.0); TOTAL PROTEIN 7.9 g/dL (6.4-8.2); TROPONIN I < 0.015 ng/mL (0.000-0.045)
[2018-03-31] MEDS ORDERED: HYDROcodone/APAP 5/325 TABLET PO PRN (12:30)
[2018-03-31] MEDS ORDERED: OMEPRAZOLE 20 MG CAPSULE.DR PO PRN (12:30)
[2018-03-31] MEDS ORDERED: ONDANSETRON ODT 4 MG SL PRN (12:30)
[2018-03-31] MEDS ORDERED: FAMOTIDINE 20 MG TABLET PO PRN (12:30)
[2018-03-31] MEDS ORDERED: morphine SULFATE 10 MG/ML, 1ML IVPush PRN (12:30)
[2018-03-31] MEDS ORDERED: ONDANSETRON 2MG/ML, 2ML IVPush PRN (12:30)
[2018-03-31] MEDS ORDERED: METHOCARBAMOL 500 MG TABLET PO PRN (12:30)
[2018-03-31] MEDS ORDERED: MAALOX/HYOSCYAMINE/LIDOCAINE 45 ML BTL PO ONE ×2 (12:30→21:00)
[2018-03-31] MEDS ORDERED: ONDANSETRON ODT 4 MG PO PRN (12:30)
[2018-03-31] MEDS ORDERED: NITROGLYCERIN 0.4 MG BOTTLE (25 TABS) SL PRN (12:30)
[2018-03-31 12:47] LABS: TROPONIN I < 0.015 ng/mL (0.000-0.045)
[2018-03-31 13:01] VITALS: BP 164/111
[2018-03-31] MEDS: ISOSORBIDE DINITRATE 10 MG TABLET PO SCH ×3 (13:09→20:28)
[2018-03-31] MEDS: HEPARIN 5,000 UNITS/ML, 1ML SQ SCH ×2 (13:09→20:28)
[2018-03-31] MEDS: SODIUM CHLORIDE 0.9% 1,000 ML IV SCH (14:54)
[2018-03-31 14:57] VITALS: BP 114/72
[2018-03-31] MEDS ORDERED: ALPR0.254 PO (15:00)
[2018-03-31] MEDS: ACETAMINOPHEN 325 MG TABLET PO PRN ×2 (15:11→21:28)
[2018-03-31] MEDS ORDERED: LEVO112T4 PO (15:36)
[2018-03-31] MEDS ORDERED: BISO1TAB51 PO (15:36)
[2018-03-31] MEDS ORDERED: LOSA25TA25 PO (15:37)
[2018-03-31 18:34] LABS: TROPONIN I < 0.015 ng/mL (0.000-0.045)
[2018-03-31 19:53] VITALS: BP 112/71
[2018-04-01 01:13] VITALS: BP 116/66
[2018-04-01] MEDS: HEPARIN 5,000 UNITS/ML, 1ML SQ SCH ×2 (05:16→12:30)
[2018-04-01 06:10] LABS: CHOL/HDL RATIO 3.8; LDL/HDL RATIO 1.8 (0.5-3.0)
[2018-04-01 06:24] VITALS: BP 133/79
[2018-04-01] MEDS: SODIUM CHLORIDE 0.9% 1,000 ML IV SCH (08:00)
[2018-04-01] MEDS: ACETAMINOPHEN 325 MG TABLET PO PRN (08:11)
[2018-04-01] MEDS: ISOSORBIDE DINITRATE 10 MG TABLET PO SCH ×2 (08:12→16:00)
[2018-04-01] MEDS ORDERED: LEVOTHYROXINE 100 MCG TABLET PO SCH (09:00)
[2018-04-01] MEDS ORDERED: MULTIVITAMIN 1 TABLET PO SCH (09:00)
[2018-04-01] MEDS ORDERED: ASPIRIN 81 MG TABLET EC PO SCH (09:00)
[2018-04-01] MEDS ORDERED: LUTEIN PO SCH (09:00)
[2018-04-01] MEDS ORDERED: ZEAXANTHIN PO SCH (09:00)
[2018-04-01 14:26] VITALS: BP 113/76
== END 2018-04-01 17:17 | disposition home or self-care (01) ==
LOC: ED 09:54 → INTOOBSV 11:31 → EDIP 11:31 → 5SO 12:48
PROVIDERS: ADMIT Internal Medicine; ATTEND Internal Medicine
DX: R07.89 Other chest pain (principal); I10 Essential (primary) hypertension; E03.9 Hypothyroidism, unspecified; F41.9 Anxiety disorder, unspecified; K21.9 Gastro-esophageal reflux disease without esophagitis; Z80.3 Family history of malignant neoplasm of breast; Z80.41 Family history of malignant neoplasm of ovary
CPT/HCPCS: 36415; 71045; 78452; 80053; 80061; 83880; 84443; 84484; 85025; 85379; 85610; 85730; 93005; 93017; 96372; 99284; A9502; C9898; G0378; J1644; J7030

== ENCOUNTER → 2018-05-20 | Outpatient (CLI) | payer OTHER ==
[~2018-05-20] MED LIST changes: +ALPR0.254 PO; +BISO1TAB51 PO; +FAMO20TA37 PO; +LEVO112T4 PO; +LOSA25TA25 PO
== END | disposition home or self-care (01) ==
LOC: CFH 12:02
PROVIDERS: ATTEND Obstetrics & Gynecology
DX: Z12.31 Encounter for screening mammogram for malignant neoplasm of breast (principal)
CPT/HCPCS: 77063; 77067

== ENCOUNTER 2018-09-28 07:06 | Outpatient (CLI) | payer OTHER | END 2018-09-28 23:59 | disposition home or self-care (01) | LOC: LAB 07:06 | PROVIDERS: ATTEND Family Medicine | DX: Z13.220 Encounter for screening for lipoid disorders (principal); Z13.1 Encounter for screening for diabetes mellitus; E03.9 Hypothyroidism, unspecified; E55.9 Vitamin D deficiency, unspecified; I10 Essential (primary) hypertension | CPT/HCPCS: 36415; 80053; 80061; 82306; 83036; 84439; 84443; 84481 ==

== ENCOUNTER → 2019-10-13 | Outpatient (CLI) | payer OTHER ==
[~2019-10-13] MED LIST changes: -BISO1TAB12 PO; +BISO1TAB92 PO
[2019-10-13 08:30] LABS: ALBUMIN 3.9 g/dL (3.4-5.0); ANION GAP 7 mmol/L (5-15); CALCIUM 9.3 mg/dL (8.5-10.1); CHLORIDE 111 mmol/L (98-107)
[2019-10-13 08:41] LABS: ALANINE AMINOTRANSFERASE 41 U/L (12-78); ALKALINE PHOSPHATASE 54 U/L (45-117); BILIRUBIN,TOTAL 0.5 mg/dL (0.2-1.0); CHOL/HDL RATIO 2.8; CHOLESTEROL, TOTAL 161 mg/dL (140-239); CREATININE 0.89 mg/dL (0.55-1.02); FREE T4 (FREE THYROXINE) 1.54 ng/dL (0.76-1.46); HDL CHOL % 35 % (28-40); HDL CHOLESTEROL (DIRECT) 57 mg/dL (40-60); LDL CHOLESTEROL,CALCULATED 81 mg/dL (54-169); LDL/HDL RATIO 1.4 (0.5-3.0); TOTAL PROTEIN 7.3 g/dL (6.4-8.2); TRIGLYCERIDES 116 mg/dL (50-200); VLDL CHOLESTEROL 23 mg/dL (0-25)
== END | disposition home or self-care (01) ==
LOC: LAB 07:58
PROVIDERS: ATTEND Family Medicine
DX: I10 Essential (primary) hypertension (principal); E03.9 Hypothyroidism, unspecified; E78.2 Mixed hyperlipidemia; E55.9 Vitamin D deficiency, unspecified
CPT/HCPCS: 36415; 80053; 80061; 82306; 84439; 84443; 84481

== ENCOUNTER → 2020-01-16 | Outpatient (CLI) | payer OTHER ==
[2020-01-16 12:40] LABS: FREE T4 (FREE THYROXINE) 1.3 ng/dL (0.76-1.46)
== END | disposition home or self-care (01) ==
LOC: LAB 11:39
PROVIDERS: ATTEND Family Medicine
DX: E03.9 Hypothyroidism, unspecified (principal)
CPT/HCPCS: 36415; 84439; 84443; 84481

== ENCOUNTER → 2020-05-29 | Outpatient (CLI) | payer OTHER ==
[~2020-05-29] MED LIST changes: -ASPI-515 PO; +ASPI-963 PO; +METH-639 PO; -METH500T7 PO
== END | disposition home or self-care (01) ==
LOC: CFH 11:25
PROVIDERS: ATTEND Family Medicine
DX: M25.521 Pain in right elbow (principal); M25.512 Pain in left shoulder

== ENCOUNTER → 2020-08-01 | Outpatient (CLI) | payer OTHER ==
[~2020-08-01] MED LIST changes: -NORE0.3513 PO; +NORE0.3519 PO
== END | disposition home or self-care (01) ==
LOC: CFH 14:32
PROVIDERS: ATTEND Family Medicine
DX: M75.52 Bursitis of left shoulder (principal); M77.8 Other enthesopathies, not elsewhere classified; M25.521 Pain in right elbow

== ENCOUNTER → 2020-08-29 | Outpatient (CLI) | payer OTHER | END | disposition home or self-care (01) | LOC: CFH 09:06 | PROVIDERS: ATTEND Obstetrics & Gynecology | DX: Z12.31 Encounter for screening mammogram for malignant neoplasm of breast (principal) | CPT/HCPCS: 77063; 77067 ==